=== PATIENT | male | born 1970 | race Caucasian/White ===

== ENCOUNTER 2017-01-06 18:19 | Emergency (ER) | payer MEDICAID ==
[2017-01-06 18:26] VITALS: BP 145/100
[2017-01-06] MEDS ORDERED: Ketorolac INJ* 30 MG/ML 1 ML VIAL IM ONE (19:50)
[2017-01-06] MEDS ORDERED: HYDROcodone/ACETAMIN 5-325 MG* 1 TAB PO ONE (19:59)
--- NOTE | 2017-01-06 20:39 | UC ---
Dental HPI - HPI Summary HPI Summary: Patient presents to the with CC of left upper dental pain 5 days s/p teeth extraction. He states he is feeling "bone" and states there is a lot of sharp pain shooting from the teeth up into the skin of the face. Denies fevers, sweats, chills, abnormal drainage or other symptoms. He is currently taking ibuprofen without relief. Taking amoxicillin prophylactically since the extraction. - History of Current Complaint Hx Obtained From: Patient Onset/Duration: Sudden Onset Severity: Moderate Pain Intensity: 8 Pain Scale Used: 0-10 Numeric Related History: Previous Dental Care on Same Tooth <Lillian Rodriguez - Last Filed: 01/06/17 20:33> <Sheree Grande - Last Filed: 01/06/17 21:47> - History of Current Complaint Chief Complaint: UCDentalProblem Stated Complaint: MOUTH PAIN Time Seen by Provider: 01/06/17 19:16 - Allergies/Home Medications Allergies/Adverse Reactions: Allergies Allergy/AdvReac Type Severity Reaction Status Date / Time No Known Allergies Allergy Verified 10/20/12 12:23 Home Medications: Home Medications Amoxicillin PO (*) [Amoxicillin 875 MG (*)] 875 mg PO TID 01/06/17 [History Confirmed 01/06/17] Carvedilol [Coreg] 3.125 mg PO 01/06/17 [History] metFORMIN* [Glucophage 1000 MG TAB *] 1,000 mg PO 0800,1700 01/06/17 [History Confirmed 01/06/17] PMH/Surg Hx/FS Hx/Imm Hx Previously Healthy: Yes - Surgical History Surgical History: Yes Surgery Procedure, Year, and Place: Last year 2 heart surgeries - Family History Known Family History: Positive: Unknown - Social History Occupation: Employed Full-time Alcohol Use: None Substance Use Type: None Smoking Status (MU): Heavy Every Day Tobacco Smoker Type: Cigarettes <Lillian Rodriguez - Last Filed: 01/06/17 20:33> Review of Systems Constitutional: Negative Skin: Negative ENT: Dental Pain Respiratory: Negative Cardiovascular: Negative Motor: Negative Neurovascular: Negative Neurological: Negative Psychological: Negative Is Patient Immunocompromised?: No All Other Systems Reviewed And Are Negative: Yes <Lillian Rodriguez - Last Filed: 01/06/17 20:33> Physical Exam Triage Information Reviewed: Yes Appearance: Well-Appearing, Well-Nourished Vital Signs: Initial Vital Signs Temp 96.5 F 01/06/17 18:22 Pulse 83 01/06/17 18:22 Resp 18 01/06/17 18:22 BP 145/100 01/06/17 18:22 Pulse Ox 100 01/06/17 18:22 Vital Signs Reviewed: Yes Eye Exam: Normal Eyes: Positive: Conjunctiva Clear Neck exam: Normal Neck: Positive: Supple, No Lymphadenopathy Respiratory Exam: Normal Respiratory: Positive: Chest non-tender, Lungs clear Cardiovascular Exam: Normal Cardiovascular: Positive: RRR Musculoskeletal Exam: Normal Musculoskeletal: Positive: Strength Intact Psychological Exam: Normal Psychological: Positive: Normal Response To Family Skin Exam: Normal <Lillian Rodriguez - Last Filed: 01/06/17 20:33> Vital Signs: Initial Vital Signs Temp 96.5 F 01/06/17 18:22 Pulse 83 01/06/17 18:22 Resp 18 01/06/17 18:22 BP 145/100 01/06/17 18:22 Pulse Ox 100 01/06/17 18:22 <Sheree Grande - Last Filed: 01/06/17 21:47> Dental Complaint Course/Dx - Course Course Of Treatment: Patient presents with exquisite dental tenderness to the right upper teeth s/p extraction. He has appt on with [facility]. He is encouraged to return for a recheck. 3 days pain management given. He is Ok with discharge. He is given Toradol 30mg while in UC. - Differential Dx/Diagnosis Differential Diagnosis/Dx: Fractured Tooth, Mandibular Trauma, Maxillary Trauma , Odontogenic Pain Provider Diagnoses: Dental Pain <Lillian Rodriguez - Last Filed: 01/06/17 20:33> Discharge <Lillian Rodriguez - Last Filed: 01/06/17 20:33> <Sheree Grande - Last Filed: 01/06/17 21:47> - Discharge Plan Condition: Stable Disposition: HOME Prescriptions: oxyCODONE TAB* [Roxycodone TAB 5 mg*] 5 mg PO Q4H PRN #15 tab MDD 6 PRN Reason: Pain Patient Education Materials: Acute Dental Trauma (ED), Toothache (ED) Referrals: Vane Caceres MD [Primary Care Provider] - Additional Instructions: Follow up with Damien Daley on as scheduled Attestation Statement User Type: Provider - I was available for consult. This patient was seen by the [facility]. The patient was not presented to, seen by, or examined by me. -Prasad <Sheree Grande - Last Filed: 01/06/17 21:47>
== END 2017-01-06 20:15 | disposition home or self-care (01) ==
LOC: UCEAST 18:19
DX: K08.89 Other specified disorders of teeth and supporting structures (principal); Z79.84 Long term (current) use of oral hypoglycemic drugs; F17.210 Nicotine dependence, cigarettes, uncomplicated
CPT/HCPCS: 96374; 99212; G0463; J1885

== ENCOUNTER → 2017-11-07 10:20 | Day surgery (SDC) | payer OTHER ==
[~2017-11-07 10:20] MED LIST: Diazepam TAB(*) 5 MG ONE; Heparin 2 UNITS/ML IVPREMIX* 2,000 ML IV ONE; Iohexol 350 (CONTRAST) 200 ML MDV IV ONE; Lidocaine 1%* 5 ML VIAL ONE; NS 0.9% 1000 ML* 1,000 ML IV SCH; diPHENhydraMINE PO* 25 MG ONE; fentaNYL* 50 MCG/ML 2 ML VIAL (100 MCG VIAL) ONE
[2017-11-07 16:50] VITALS: BP 123/75
--- NOTE | 2017-11-08 21:48 | CATH ---
CC: Dr. Vane Caceres, [facility] [place] CARDIAC CATHETERIZATION REPORT: DATE OF PROCEDURE: 11/07/17 INDICATION FOR THE PROCEDURE: The patient with significant left ventricular systolic dysfunction with known coronary artery disease with high-risk nuclear stress test with significant left ventricular systolic dysfunction and fixed inferior perfusion abnormality, now for catheterization to assess for progressive coronary artery disease with a history of prior stenting of the proximal to mid LAD and the obtuse marginal branch of the circumflex. PROCEDURE: Coronary arteriography, left heart catheterization, left ventriculography. The patient was interviewed and examined in the office where the risks and benefits were explained. He understood them and wished to proceed. PRECARDIAC CATHETERIZATION LABORATORY RESULTS: Hemoglobin and hematocrit of 14.1 and 41 with a platelet count of 195,000. BUN and creatinine of 13 and 0.8. Sodium of 137, potassium 4.7, chloride 103, bicarb 27. EQUIPMENT UTILIZED: 1. Right femoral artery sheath: A 5-Eritrean Layla 11-cm sheath. 2. Diagnostic coronary catheters: FL4 curve and an FR4 curve 5-Eritrean diagnostic catheters. 3. Left heart catheterization catheter: A 5-Eritrean angled pigtail catheter. 4. Guidewire utilized: A 175 length J-tipped guidewire. 5. The right femoral artery closure device: A 5-Eritrean Mynx vascular closure device. DESCRIPTION OF PROCEDURE: The patient was brought into the cardiovascular laboratory where a formal time-out was performed. The patient was prepped and draped in sterile fashion. Right femoral artery area was anesthetized and the right femoral artery was cannulated using an anterior wall only stick and a sheath was placed. Diagnostic coronary arteriography was performed utilizing a 5-Eritrean 4 Anabell left coronary catheter and a 5-Eritrean 4 Anabell right coronary catheter. Central aortic pressure was recorded using an angled pigtail catheter advanced to the ascending aorta. The catheter was then passed across the aortic wall in to the left ventricle. The left ventricular pressure was recorded. Left ventriculography was performed utilizing a total of 24 cc of Omnipaque dye at a rate of 12 cc/sec. The catheter was then pulled back across the aortic valve to recheck gradient. At the end of the case, an injection was made into the right femoral sheath to assess the eligibility utilizing closure device. It was found to be acceptable for this and as such a 5-Eritrean Mynx closure device was deployed with good hemostasis. The total contrast used was 85 cc of Omnipaque dye. The radiation exposure included 3.4 minutes of fluoro time. The air kerma radiation was 1147 milligray. The DAP radiation was 6948 microgray/sq. m. RESULTS: HEMODYNAMIC DATA: Left heart catheterization revealed central aortic pressure was recorded at 144/84 with a mean of 109, left ventricular pressure 146 over left ventricular end diastolic pressure of 25 to 28 mmHg. LEFT VENTRICULOGRAPHY: Performed in the TOMAS projection revealed severe global left ventricular hypokinesis with overall EF estimated at 30%. No significant mitral regurgitation was identified. CORONARY ARTERIOGRAPHY: A. Left coronary artery: 1. Left main - short in nature and widely patent. 2. Left anterior descending artery - the proximal portion of the left anterior descending artery had an area in its worst view of approximately 50% lesion in the LAD, just prior to the first septal blade aligner. The stented area in the proximal- to-mid portion had very mild in-stent restenosis of maximal amount approximately 25%. The LAD traversed to the apical region. The mid diagonal branch had an ostial narrowing of approximately 70% seen with MIGDALIA-3 flow noted. There was a very thin first and second diagonal branch noted. 3. Circumflex artery - a nondominant vessel supplying a thin first and second obtuse marginal branch. The third obtuse marginal branch had a proximal thin branch short in nature followed by the area of prior stent placement leading to a bifurcating portion in the vessel, which traversed to the distal inferior apical region. The stented area had no evidence of significant in- stent restenosis. The mid portion of the circumflex had an area of 40% to 45% narrowing and the portion distal to the stent placement in the obtuse marginal branch had a 40% narrowing. The continuation of the circumflex supply to low- lying posterior left ventricular branch with no significant obstruction noted. An area of 35% to 40% was noted in the mid portion of this somewhat small- caliber vessel. Collateral blood flow was seen to the distal right circulation from the left coronary artery. B. Right coronary artery: A dominant vessel with bridging collaterals filling the distal vessel, which appeared to be quite narrowed in nature and thin. There was a fairly long segment of total occlusion in the proximal portion. OVERALL ASSESSMENT: Significant left ventricular systolic dysfunction with an ejection fraction estimated at best at 30%, patent stents to the left anterior descending artery and circumflex with borderline significant lesion in the diagonal branch with no evidence of significant reversible ischemia on reviewing imaging to that distribution. Aggressive medical management will be pursued with titrating up further the carvedilol and adding Aldactone. The patient will be followed up in the office and a referral most likely to the [facility] at [facility] will be considered given his ongoing deterioration of left ventricular function. Recommendations for an ICD placement will be discussed as well. [id number]/[facility] #: [id number] TEQUILA
== END | disposition home or self-care (01) ==
LOC: CHICATH 10:20
PROVIDERS: ATTEND Internal Medicine Cardiovascular Disease
DX: I25.118 Atherosclerotic heart disease of native coronary artery with other forms of angina pectoris (principal); Z95.5 Presence of coronary angioplasty implant and graft; Z72.0 Tobacco use; E11.9 Type 2 diabetes mellitus without complications; Z79.84 Long term (current) use of oral hypoglycemic drugs; E78.5 Hyperlipidemia, unspecified; I10 Essential (primary) hypertension; F31.9 Bipolar disorder, unspecified; I25.5 Ischemic cardiomyopathy
CPT/HCPCS: 76937; 93458; A9270-GY; C1887; J1644; J3010

== ENCOUNTER 2023-07-31 09:47 | Inpatient (IN) ==
[2023-07-31] MEDS ORDERED: Lactulose 30 ml UDC PO PRN (10:23)
[2023-07-31] MEDS ORDERED: Magnesium Hydroxide LIQ 30 ML UDC PO PRN (10:23)
[2023-07-31] MEDS ORDERED: Ondansetron 4 mg VIAL 2 MG/ML 2 ml VIAL IV PRN (10:23)
[2023-07-31 11:09] LABS: ABS Basophils 0.1 10^3/uL (0.0-0.1); ABS Eosinophils 0.2 10^3/uL (0.0-0.5); ABS Lymphocytes 1.4 10^3/uL (1.0-4.8); ABS Monocytes 0.6 10^3/uL (0.0-1.1); ABS Neutrophils 6.8 10^3/uL (1.5-7.6); ABS Nucleated RBC 0.01 10^3/ul; Eosinophil % 1.9 %; Hematocrit 39.3 % (38-53); Hemoglobin 13.3 g/dL (13.2-16.3); Lymphocyte % 15.6 %; Mean Corpuscular Hemoglobin 32.9 pg (27-33); Mean Corpuscular Hgb Conc 33.8 g/dL (31-36); Mean Corpuscular Volume 97.2 fL (80-97); Mean Platelet Volume 8.6 fL (7.5-11.2); Nucleated Red Blood Cells % 0.1 %/100WBC (0.0-0.8); Platelet Count 323 10^3/uL (150-450); Red Blood Count 4.04 10^6/uL (4.06-5.63); Red Cell Distribution Width 13.9 % (12-17)
[2023-07-31 11:42] LABS: Albumin 4.4 g/dL (3.2-5.2); Albumin/Globulin Ratio 1.3 (1-3); C Reactive Protein 4.49 mg/L (<8.01); Calcium 9.5 mg/dL (8.6-10.3); Creatinine, Serum 0.94 mg/dL (0.67-1.17); Globulin 3.5 g/dL (2-4); Potassium 4.3 mmol/L (3.5-5.0); Total Bilirubin 0.5 mg/dL (0.2-1.0); Total Protein 7.9 g/dL (6.4-8.9); eGFR CKD-EPI 97.5 (>60)
[2023-07-31] MEDS ORDERED: Dextrose 50% Syringe 50 ml 25 GM/50 ML SYRINGE IV PUSH PRN (12:01)
[2023-07-31] MEDS: Lactated Ringers 1000 ml BAG 1,000 ML IV SCH (12:28)
[2023-07-31 12:30] LABS: Erythrocyte Sed Rate 44 mm/Hr (0-19)
[2023-07-31] MEDS ORDERED: Lidocaine 1% 50 ML MDV VIAL ONE (13:09)
[2023-07-31] MEDS ORDERED: Lidocaine 2% PF 5 ML VIAL ONE (13:13)
[2023-07-31] MEDS ORDERED: Midazolam 2 mg/2 ml VIAL 1 mg/ml 2 ml VIAL (2 mg) ONE (13:13)
[2023-07-31] MEDS ORDERED: Propofol 10 MG/ML 20 ML BTL ONE (13:13)
[2023-07-31] MEDS ORDERED: fentaNYL 100 mcg/2 ml 50 MCG/ML VIAL ONE (13:14)
[2023-07-31] MEDS ORDERED: Vancomycin per Pharmacy 1 EA NOTE FOLLOW UP SCH (16:05)
[2023-07-31] MEDS: Vancomycin 1,500 MG in NS 0.9% 250 ml 250 ML IVPB ONE (16:55)
[2023-07-31] MEDS: Magnesium Hydroxide LIQ 30 ML UDC PO SCH (21:10)
[2023-08-01] MEDS ORDERED: Vancomycin 750 MG in NS 0.9% 250 ML IVPB SCH
[2023-08-01] MEDS: Morphine 2 MG/ML SYRINGE IV PRN (02:43)
[2023-08-01] MEDS: Vancomycin 1,250 MG in NS 0.9% 250 ml 250 ML IVPB SCH (06:08)
[2023-08-01] MEDS: Vitamin THERAPEUTIC TAB PO SCH (07:27)
[2023-08-01 09:00] LABS: ABS Eosinophils 0.3 10^3/uL (0.0-0.5); ABS Lymphocytes 2.2 10^3/uL (1.0-4.8); ABS Monocytes 0.7 10^3/uL (0.0-1.1); ABS Neutrophils 4.4 10^3/uL (1.5-7.6); Eosinophil % 3.5 %; Hematocrit 35.6 % (38-53); Lymphocyte % 29.2 %; Mean Corpuscular Hemoglobin 33.1 pg (27-33); Mean Corpuscular Hgb Conc 33.7 g/dL (31-36); Mean Corpuscular Volume 98.1 fL (80-97); Mean Platelet Volume 8.6 fL (7.5-11.2); Platelet Count 267 10^3/uL (150-450); Red Blood Count 3.63 10^6/uL (4.06-5.63); Red Cell Distribution Width 14.1 % (12-17); White Blood Count 7.5 10^3/uL (3.6-10.2)
[2023-08-01 09:25] LABS: C Reactive Protein 3.16 mg/L (<8.01); Calcium 8.3 mg/dL (8.6-10.3); Creatinine, Serum 0.88 mg/dL (0.67-1.17); Potassium 4.7 mmol/L (3.5-5.0); eGFR CKD-EPI 103.5 (>60)
[2023-08-02 09:02] LABS: ABS Basophils 0.1 10^3/uL (0.0-0.1); ABS Eosinophils 0.4 10^3/uL (0.0-0.5); ABS Lymphocytes 1.8 10^3/uL (1.0-4.8); ABS Monocytes 0.5 10^3/uL (0.0-1.1); ABS Neutrophils 4.8 10^3/uL (1.5-7.6); ABS Nucleated RBC 0.01 10^3/ul; Eosinophil % 4.7 %; Hematocrit 37.6 % (38-53); Hemoglobin 12.9 g/dL (13.2-16.3); Lymphocyte % 23.8 %; Mean Corpuscular Hemoglobin 33.5 pg (27-33); Mean Corpuscular Hgb Conc 34.3 g/dL (31-36); Mean Corpuscular Volume 97.7 fL (80-97); Nucleated Red Blood Cells % 0.2 %/100WBC (0.0-0.8); Platelet Count 294 10^3/uL (150-450); Red Blood Count 3.84 10^6/uL (4.06-5.63); Red Cell Distribution Width 14.1 % (12-17); White Blood Count 7.6 10^3/uL (3.6-10.2)
[2023-08-02 09:44] LABS: C Reactive Protein 2.98 mg/L (<8.01); Calcium 8.8 mg/dL (8.6-10.3); Creatinine, Serum 0.8 mg/dL (0.67-1.17); Potassium 4.4 mmol/L (3.5-5.0); eGFR CKD-EPI 106.5 (>60)
[2023-08-02] MEDS: Vancomycin Trough Check NOTE FOLLOW UP ONE (09:50)
[2023-08-02] MEDS: ceFAZolin 2 GM PREMIX 2 GM/50 ML BAG IV SCH (14:00)
[2023-08-02] MEDS ORDERED: ceFAZolin 2 GM in NS PREMIX 2 GM/100 ML BAG IVPB SCH (14:00)
[2023-08-02] MEDS ORDERED: Vancomycin 1,250 MG in NS 0.9% 250 ml 250 ML IVPB SCH (22:00)
[2023-08-03] MEDS ORDERED: Vancomycin Trough Check NOTE FOLLOW UP ONE (09:30)
[2023-08-05 09:26] LABS: ABS Basophils 0.1 10^3/uL (0.0-0.1); ABS Eosinophils 0.4 10^3/uL (0.0-0.5); ABS Lymphocytes 2.7 10^3/uL (1.0-4.8); ABS Monocytes 0.7 10^3/uL (0.0-1.1); ABS Neutrophils 4.1 10^3/uL (1.5-7.6); Hematocrit 38.3 % (38-53); Lymphocyte % 33.4 %; Mean Corpuscular Hemoglobin 33.1 pg (27-33); Mean Corpuscular Volume 97.3 fL (80-97); Mean Platelet Volume 8.9 fL (7.5-11.2); Platelet Count 295 10^3/uL (150-450); Red Blood Count 3.94 10^6/uL (4.06-5.63)
[2023-08-05 09:52] LABS: Creatinine, Serum 0.91 mg/dL (0.67-1.17); Potassium 5.2 mmol/L (3.5-5.0); eGFR CKD-EPI 101.4 (>60)
[2023-08-07 22:20] VITALS: BP 138/92
[2023-08-08] MEDS: Ondansetron ODT 4 mg TAB 4 MG TAB PO PRN (00:07)
== END 2023-08-08 11:56 | disposition home or self-care (01) | DRG 316 ==
LOC: SSU
PROVIDERS: ADMIT Orthopaedic Surgery; ATTEND Orthopaedic Surgery